=== PATIENT | male | born 1950 | race Caucasian/White ===

== ENCOUNTER 2022-04-03 12:09 | Inpatient (IN) | payer MEDICARE, OTHER ==
[~2022-04-03] VITALS: Ht 175.3 cm; Wt 100.5 kg
[2022-04-03 12:59] LABS: BASOPHILS ABSOLUTE AUTO 0.03 K/mm3 (0.00-0.23); BASOPHILS PERCENT AUTO 0 % (0-2); EOSINOPHILS ABSOLUTE AUTO 0.14 K/mm3 (0.00-0.68); EOSINOPHILS PERCENT AUTO 1 % (0-6); Hematocrit 45.3 % (37.0-53.0); Hemoglobin 15.6 g/dL (13.5-17.5); IMMATURE GRAN ABSOLUTE AUTO 0.04 K/mm3 (0.00-0.10); IMMATURE GRAN PERCENT AUTO 0 % (0-1); LYMPHOCYTES ABSOLUTE AUTO 2.41 K/mm3 (0.84-5.20); LYMPHOCYTES PERCENT AUTO 19 % (21-46); MONOCYTES ABSOLUTE AUTO 1.36 K/mm3 (0.16-1.47); MONOCYTES PERCENT AUTO 11 % (4-13); Mean Corpuscular HGB 28.6 pg (26.0-34.0); Mean Corpuscular HGB Conc 34.4 g/dL (31.5-36.5); Mean Corpuscular Volume 83 fL (80-100); NEUTROPHILS ABSOLUTE AUTO 8.95 K/mm3 (1.96-9.15); NEUTROPHILS PERCENT AUTO 69 % (41-73); RDW Coefficient Variation 12.8 % (11.7-14.2); RDW Standard Deviation 38.4 fL (35.1-46.3); Red Blood Cell Count 5.45 M/mm3 (4.30-5.90); White Blood Cell Count 12.93 K/mm3 (4.00-11.30)
[2022-04-03 13:05] LABS: Albumin, Blood 4.1 g/dL (3.4-5.0); Albumin/Globulin Ratio 1.2 (0.8-1.8); Bilirubin, Total 0.6 mg/dL (0.1-1.0); Bun/Creatinine Ratio 14.7 (12.0-20.0); Calcium, Blood 9.2 mg/dL (8.5-10.1); Creatinine, Blood 1.16 mg/dL (0.60-1.20); Globulin, Blood 3.3 g/dL (2.2-4.0); Total Protein, Blood 7.4 g/dL (6.4-8.2)
[2022-04-03 13:07] LABS: Mean Platelet Volume 11.9 fL (9.1-12.4)
[2022-04-03 13:20] LABS: Platelet Count 257 K/mm3 (150-400)
[2022-04-03 14:06] LABS: Anti-Xa UFH, PHA Monitoring <0.10 IU/mL; International Normalized Ratio 1.09; Prothrombin Time Results 11.4 Sec (9.7-11.5)
--- NOTE | 2022-04-03 15:05 | NUR ---
RECIEVED PT FROM [employer]-S/P STEMI WITH STENT TO LAD. PT IS A&OX4. PT DENIES CP OR SOB. HX-HTN AND PROSTATE ISSUES WITH ELEVATED PSA. PT IS LOWER [place], BUT ABLE TO COMMUNICATE NEEDS WELL. ECG SHOWS SR WITH RATE 80'S. BP 148/100. DP/PT PULSES 2+. NO NOTED EDEMA. RIGHT RADIAL TR BAND WITH 12 CC TO CUFF. SLIGHT BRUISING NOTED, BUT SITE IS SOFT, NONTENDER, AND NO ACUTE BLEEDING NOTED. LUNGS CLEAR-SATS>90% ON RA. NO NOTED COUGH. NO GI DISTRESS. SKIN IS CLEAR, WARM, AND DRY. PT STOOD AT THE BEDSIDE TO VOID VIA URINAL WITHOUT DIFFICULTY. PT MED LIST UPDATED. PT DAUGHTERS IN FOR VISIT. CALL LIGHT WITHIN REACH.
[2022-04-03] MEDS ORDERED: IRBE150 PO (15:19)
[2022-04-03] MEDS ORDERED: GEMF600 PO (15:20)
[2022-04-03] MEDS ORDERED: TAMS.4ER PO (15:20)
--- NOTE | 2022-04-03 16:15 | NUR ---
DR. FONSECA IN TO SEE PT. UPDATE GIVEN. ECHO IN PROGRESS. 1ST DOSE OF COREG GIVEN. TR BAND SITE REMAINS STABLE.
--- NOTE | 2022-04-03 17:46 | NUR ---
SBP>170-SEE FLOWSHEET. PT SITTING UP IN BED EATING DINNER. PT DENIES CP OR SOB. MED WITH HYDRALAZINE 10 MG IVP X 1. TR BAND SITE REMAINS STABLE, BUT HAVE NOT REMOVED ANY AIR FROM CUFF DUE TO SBP>170.
[2022-04-04 04:10] LABS: BASOPHILS ABSOLUTE AUTO 0.02 K/mm3 (0.00-0.23); BASOPHILS PERCENT AUTO 0 % (0-2); EOSINOPHILS ABSOLUTE AUTO 0.11 K/mm3 (0.00-0.68); EOSINOPHILS PERCENT AUTO 1 % (0-6); Hematocrit 43.8 % (37.0-53.0); Hemoglobin 14.8 g/dL (13.5-17.5); IMMATURE GRAN ABSOLUTE AUTO 0.04 K/mm3 (0.00-0.10); IMMATURE GRAN PERCENT AUTO 0 % (0-1); LYMPHOCYTES ABSOLUTE AUTO 1.36 K/mm3 (0.84-5.20); LYMPHOCYTES PERCENT AUTO 11 % (21-46); MONOCYTES ABSOLUTE AUTO 1.07 K/mm3 (0.16-1.47); MONOCYTES PERCENT AUTO 9 % (4-13); Mean Corpuscular HGB 28.4 pg (26.0-34.0); Mean Corpuscular HGB Conc 33.8 g/dL (31.5-36.5); Mean Corpuscular Volume 84 fL (80-100); Mean Platelet Volume 11.9 fL (9.1-12.4); NEUTROPHILS ABSOLUTE AUTO 9.92 K/mm3 (1.96-9.15); NEUTROPHILS PERCENT AUTO 79 % (41-73); Platelet Count 276 K/mm3 (150-400); RDW Coefficient Variation 13.1 % (11.7-14.2); RDW Standard Deviation 40.1 fL (35.1-46.3); Red Blood Cell Count 5.21 M/mm3 (4.30-5.90); White Blood Cell Count 12.52 K/mm3 (4.00-11.30)
[2022-04-04 04:29] LABS: Anion Gap 9 mmol/L (6-16); Blood Urea Nitrogen 18 mg/dL (8-24); Bun/Creatinine Ratio 14.5 (12.0-20.0); CO2, Blood 22 mmol/L (21-32); Calcium, Blood 9.3 mg/dL (8.5-10.1); Chloride, Blood 105 mmol/L (98-108); Cholesterol 174 mg/dL (50-200); Creatinine, Blood 1.24 mg/dL (0.60-1.20); Glomerular Filtration Rate 62 (60-); Glucose, Blood 111 mg/dL (70-99); Potassium, Blood 3.8 mmol/L (3.5-5.5); Sodium, Blood 136 mmol/L (136-145)
--- NOTE | 2022-04-04 08:00 | NUR ---
PT A&O X 4. COCOPAH, BUT COMMUNICATES NEEDS WELL. PT DENIES CP OR SOB. ECG SHOWS SR. WITH RATE 60-80'S. NO NOTED ECTOPY. DP/PT PULSES 2+. NO EDEMA. RIGHT RADIAL SITE WITH MILD BRUISING. RIGHT RADIAL SITE IS SOFT AND NONTENDER. LUNGS CLEAR. NO NOTED COUGH. SATS>90% ON RA. NO GI DISTRESS. PT STANDS AT THE BEDSIDE TO VOID-USES CALL LIGHT TO REQUEST ASSIST PRN. PT VERBALIZES THAT HE IS ANXIOUS TO GO HOME TODAY.
[2022-04-04] MEDS ORDERED: ASPI81CH PO (11:57)
[2022-04-04] MEDS ORDERED: ATOR80 PO (11:57)
[2022-04-04] MEDS ORDERED: Carvedilol12.5 MG PO (11:57)
[2022-04-04] MEDS ORDERED: TICA90TA PO (12:00)
--- NOTE | 2022-04-04 12:12 | NUR ---
Student consent statement. 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 04/04/2022. CT
--- NOTE | 2022-04-04 12:30 | NUR ---
ANA MANCILLA REVIEWED DISCHARGE INSTRUCTIONS WITH PT AND HIS DAUGHTER ALLISON. RX PHONED TO [facility]. PT DC'D TO HOME, OUT AMBULATORY WITH BELONGINGS AND DISCHARGE INSTRUCTIONS ON HAND.
== END 2022-04-04 12:40 | disposition home or self-care (01) | DRG 247 ==
LOC: ER 12:09 → ICUW 13:49
PROVIDERS: Emergency Medicine; ADMIT Internal Medicine Cardiovascular Disease
PROC: 4A023N7 Measurement of Cardiac Sampling and Pressure, Left Heart, Percutaneous Approach (ICD-10-PCS; principal; 2022-04-03)
PROC: 027034Z Dilation of Coronary Artery, One Artery with Drug-eluting Intraluminal Device, Percutaneous Approach (ICD-10-PCS; 2022-04-03)
PROC: B2111ZZ Fluoroscopy of Multiple Coronary Arteries using Low Osmolar Contrast (ICD-10-PCS; 2022-04-03)
DX: I21.09 ST elevation (STEMI) myocardial infarction involving other coronary artery of anterior wall (principal); I10 Essential (primary) hypertension; E78.5 Hyperlipidemia, unspecified; N40.0 Benign prostatic hyperplasia without lower urinary tract symptoms; E66.9 Obesity, unspecified; Z79.82 Long term (current) use of aspirin; Z79.899 Other long term (current) drug therapy; Z68.32 Body mass index [BMI] 32.0-32.9, adult
CPT/HCPCS: 36415; 71045; 76937; 80048; 80053; 82465; 83690; 84484; 85025; 85347; 85520; 85610; 85730; 92978; 93005; 93010; 93454; 99152; 99153; A9270; C1725; C1753; C1769; C1874; C1887; C1894; C8929; C9600; C9606; J0360; J1644; J2250; J3010; J7030; J7040; Q9957; Q9967

== ENCOUNTER → 2023-01-21 | Outpatient (CLI) | payer MEDICARE, OTHER ==
[~2023-01-21] MED LIST: ASPI81CH PO; ATOR80 PO; Carvedilol12.5 MG PO; GEMF600 PO; IRBE150 PO; TAMS.4ER PO; TICA90TA PO
[2023-01-21 11:57] LABS: BASOPHILS ABSOLUTE AUTO 0.02 K/mm3 (0.00-0.23); BASOPHILS PERCENT AUTO 1 % (0-2); EOSINOPHILS PERCENT AUTO 5 % (0-6); Hematocrit 40.1 % (37.0-53.0); Hemoglobin 13.4 g/dL (13.5-17.5); IMMATURE GRAN ABSOLUTE AUTO 0.01 K/mm3 (0.00-0.10); IMMATURE GRAN PERCENT AUTO 0 % (0-1); LYMPHOCYTES ABSOLUTE AUTO 0.61 K/mm3 (0.84-5.20); LYMPHOCYTES PERCENT AUTO 14 % (21-46); MONOCYTES ABSOLUTE AUTO 0.36 K/mm3 (0.16-1.47); MONOCYTES PERCENT AUTO 8 % (4-13); Mean Corpuscular HGB 29.8 pg (26.0-34.0); Mean Corpuscular HGB Conc 33.4 g/dL (31.5-36.5); Mean Corpuscular Volume 89 fL (80-100); Mean Platelet Volume 11.5 fL (9.1-12.4); NEUTROPHILS ABSOLUTE AUTO 3.24 K/mm3 (1.96-9.15); NEUTROPHILS PERCENT AUTO 73 % (41-73); Platelet Count 250 K/mm3 (150-400); RDW Coefficient Variation 12.5 % (11.7-14.2); Red Blood Cell Count 4.49 M/mm3 (4.30-5.90); White Blood Cell Count 4.44 K/mm3 (4.00-11.30)
[2023-01-21 12:14] LABS: Alanine Aminotransfer (ALT/SGP 33 U/L (12-78); Albumin, Blood 4.2 g/dL (3.4-5.0); Albumin/Globulin Ratio 1.3 (0.8-1.8); Alk Phos 75 U/L (50-136); Anion Gap 5 mmol/L (6-16); Aspartate Aminotrans (AST/SGOT 18 U/L (12-37); Bilirubin, Total 0.8 mg/dL (0.1-1.0); Blood Urea Nitrogen 21 mg/dL (8-24); Bun/Creatinine Ratio 20.2 (12.0-20.0); CHOL/HDL RATIO 3.2; CO2, Blood 24 mmol/L (21-32); Calcium, Blood 9.4 mg/dL (8.5-10.1); Chloride, Blood 109 mmol/L (98-108); Cholesterol 155 mg/dL (50-200); Creatinine, Blood 1.04 mg/dL (0.60-1.20); Globulin, Blood 3.2 g/dL (2.2-4.0); Glomerular Filtration Rate 76 (60-); Glucose, Blood 151 mg/dL (70-99); HDL Cholesterol 49 mg/dL (>39); LDL/HDL RATIO 1.2; Low Density Lipoprotein Chol 59 mg/dL (0-110); Potassium, Blood 3.9 mmol/L (3.5-5.5); Prostate Specific Antigen 0.038 ng/mL (0.000-4.000); Sodium, Blood 138 mmol/L (136-145); Total Protein, Blood 7.4 g/dL (6.4-8.2); Triglycerides 235 mg/dL (30-160); Very Low Density Lipoprot Chol 47 mg/dL (6-32)
== END ==
LOC: LAB SHORT 10:46 → LAB 10:46
PROVIDERS: Family Medicine
DX: I10 Essential (primary) hypertension (principal); R73.01 Impaired fasting glucose; R97.20 Elevated prostate specific antigen [PSA]
CPT/HCPCS: 80053; 80061; 83036; 84153; 85025